=== PATIENT | male | born 2000 | race African-American/Black ===

== ENCOUNTER 2023-10-01 06:09 | Emergency (ER) | payer SELFPAY ==
--- NOTE | ~2023-10-01 | XR_ITS ---
Supine and upright views of the abdomen Clinical history: Constipation, rectal bleeding Findings: Bowel gas pattern is nonspecific. Mild to moderate stool burden present. No evidence for ob struction or free air. No abnormal mass lesion or calcification is seen. Osseous structures are intac t. Impression: Mild to moderate stool burden. Nonspecific bowel gas pattern. Reviewed, dictated and finalized at [facility]. Impression: Mild to moderate stool burden. Nonspecific bowel gas pattern.
--- NOTE | ~2023-10-01 | XR_ITS ---
Clinical Indication: Chest pain PA and lateral views of the chest: Comparison: 04/09/2015 Findings: The lungs are clear, without evidence of focal consolidation or pleural effusion. Cardiome diastinal silhouette is within normal limits. Bones and soft tissues are unremarkable. Impression: Normal chest. Reviewed, dictated and finalized at location . Impression: Normal chest.
[2023-10-01 06:19] VITALS: BP 150/87; PULSE 77; RESP 20; TEMP 36.1; O2SAT 97
[2023-10-01 06:27] VITALS: PULSE 76
[2023-10-01 06:28] VITALS: O2SAT 98
[2023-10-01 06:29] VITALS: BP 150/87; PULSE 66; RESP 19; TEMP 36.1; O2SAT 98
--- NOTE | 2023-10-01 06:30 | ECG_ITS ---
SEE SCANNED COPY FOR CONFIRMED REPORT. MTDD
[2023-10-01] MEDS: ASPIRIN 81 MG CHEWABLE TABLET 324 MG PO (06:42)
[2023-10-01 06:44] LABS: Basophils Absolute Auto 0.1 K/mm3 (0.0-0.1); Basophils Percent Auto 0.8 % (0.2-1.2); Eosinophils Absolute Auto 0.1 K/mm3 (0-0.3); Eosinophils Percent Auto 1.3 % (0-4.4); Hematocrit 44.3 % (42.0-52.0); Hemoglobin 15.2 g/dL (14.0-18.0); Immature Granulocyte Absolute 0.03 K/mm3 (0.00-0.031); Immature Granulocyte Percent A 0.3 % (0-0.5); Lymphocytes Absolute Auto 2.72 K/mm3 (0.9-3.2); Lymphocytes Percent Auto 29.2 % (18.3-44.2); Mean Corpuscular HGB Conc 34.3 g/dl (32-36); Mean Corpuscular Volume 81.6 fl (80-100); Mean Platelet Volume 10.3 fl (7.4-10.4); Monocytes Absolute Auto 0.5 K/mm3 (0.1-0.6); Monocytes Percent Auto 5.8 % (2.6-8.5); Neutrophils Absolute Auto 5.8 K/mm3 (1.3-6.7); Neutrophils Percent Auto 62.6 % (45.5-73.1); Platelet Count Result 254 k/mm3 (150-375); Red Blood Count 5.43 M/mm3 (4.6-6.20); Red Cell Distribution Width 13.6 % (11.5-14.5); White Blood Count 9.3 K/mm3 (4.5-10.0)
[2023-10-01 06:54] LABS: Alanine Aminotransferase 23 U/L (6-50); Albumin Level 4.6 g/dL (3.5-5.1); Alkaline Phosphatase 82 U/L (38-126); Anion Gap 6 mmol/L (4-12); Aspartate Amino Transferase 32 U/L (17-59); Bilirubin,Total 0.6 mg/dL (0.2-1.3); Blood Urea Nitrogen 14 mg/dL (9-20); Calcium 9.2 mg/dL (8.4-10.2); Carbon Dioxide 24 mmol/L (22-30); Chloride 106 mmol/L (98-107); Estimated Glomerular Filt Rate > 60; Glucose 109 mg/dL (65-110); Lipase 236 U/L (23-300); Potassium 4.2 mmol/L (3.4-5.0); Sodium 136 mmol/L (137-145)
[2023-10-01 06:56] LABS: Partial Thromboplastin Time 35.8 Seconds (22.3-36.8)
--- NOTE | 2023-10-01 06:58 | ED.CHESTPAIN ---
HPI - Chest Pain General Chief Complaint: Chest Pain Stated Complaint: chest pain, constipation Time Seen by Provider: 10/01/23 06:56 Source: patient and family (Mother) Mode of arrival: ambulatory Limitations: no limitations History of Present Illness HPI narrative: 23-year-old male presents with episodic intermittent chest pain. This has been going on since yesterday. No radiation. Symptoms occur intermittently and last for approximately 10-15 minutes. Patient denies being short of breath but does have pain that is exacerbated by inspiration. No cough or fevers. This has never occurred before. No underlying cardiac conditions and does follow with a bar turner. No lower extremity edema. History of asthma for which he uses his albuterol inhaler p.r.n.. He has also been having constipation. Usually he defecates frequently, sometimes multiple times a day. Approximately 1 week ago he started becoming constipated. Three days ago he tried magnesium citrate and this did produce a bowel movement but then became constipated again and hasn't had a bowel movement. With this, he is intermittently nauseated but denies any vomiting. He has had decreased p.o. intake. This has never happened before. He denies any abdominal pain. He is not on any opiates or heroin. He has developed a hemorrhoid and is having some low back pain. In addition he is having myalgias. Experiences pain is rectum only when he defecates. He has noticed some blood on the tissue paper. No prior diagnosis HLD. Has been diagnosed with HTN but not on meds. Non smoker of cigarettes. No fam member with heart attack before age 65. Related Data Allergies Allergy/AdvReac Type Severity Reaction Status Date / Time No Known Allergies Allergy Mild Verified 10/01/23 06:26 [facility] Past Medical History Medical History (Updated 10/01/23 @ 08:13 by Melinda Mehta MD) Asthma HTN (hypertension) not on antihypertensive Social History Social History (Updated 10/01/23 @ 08:14 by Melinda Mehta MD) Social History: Good social support Smoking packs per day: 0 Smoking cigarettes per day: 0.0 Smoking status: Never smoker Substance use type: marijuana Other substance usage details: dabs Exam Narrative: GENERAL: Well-appearing, well-nourished, and in no acute distress. HEAD: Normocephalic, atraumatic. EYES: Non injected, non icteric ENT: Nares clear, no rhinorrhea or epistaxis. NECK: Supple. CHEST: Speaking in full sentences. No respiratory distress. Lungs clear to auscultation bilaterally w/o appreciable, stridor, crackles, wheeze. HEART: Regular rate and rhythm. . ABDOMEN/GI: Obese, protuberant. Soft, nondistended. No tenderness to palpation. No rigidity or guarding. Rectal exam performed. There is evidence of a non thrombosed external hemorrhoid. No gross blood. Normal sphincter tone. No masses, anal fissure. FOBT negative. EXTREMITIES: Normal range of motion. No edema. SKIN: Warm, dry, no rash. NEURO: No focal deficits. Alert and oriented x3. PSYCH: Normal mood and affect. Course Vital Signs Vital signs: Vital Signs Temperature 97.0 F L 10/01/23 06:19 Pulse Rate 77 10/01/23 06:19 Respiratory Rate 20 10/01/23 06:19 Blood Pressure 150/87 H 10/01/23 06:19 Pulse Oximetry 97 10/01/23 06:19 Oxygen Delivery Room Air 10/01/23 06:19 Temperature 97.0 F L 10/01/23 06:29 Pulse Rate 62 10/01/23 08:31 Respiratory Rate 16 10/01/23 08:31 Blood Pressure 132/97 H 10/01/23 08:31 Pulse Oximetry 99 10/01/23 08:31 Oxygen Delivery Room Air 10/01/23 06:28 MDM - Chest Pain MDM Narrative Medical decision making narrative: The patient is a 23 year old who comes to the emergency department with intermittent episodic chest pain exacerbated by inspiration as well as myalgias and constipation. Has noted some rectal bleeding and has a hemorrhoid. In the emergency department he is afebrile with vital signs
[2023-10-01 07:05] LABS: Troponin I < 0.012 ng/mL (0.000-0.034)
[2023-10-01] MEDS: ACETAMINOPHEN 500 MG TABLET 1000 MG PO (07:17)
[2023-10-01] MEDS: ONDANSETRON INJ 4 MG/2 ML VIAL IV PUSH (07:18)
--- NOTE | 2023-10-01 07:20 | PC.NURSE ---
pt taken to xray at this time
[2023-10-01 07:28] LABS: Magnesium 2.1 mg/dL (1.6-2.3)
--- NOTE | 2023-10-01 07:29 | PC.NURSE ---
Pt returned to room 7 at this time
[2023-10-01 07:35] VITALS: BP 132/84; PULSE 80; RESP 16; O2SAT 97
[2023-10-01 07:59] LABS: D Dimer 0.31 ug/mL (<0.48)
[2023-10-01 08:02] LABS: Influenza A QL RT-PCR Negative (Negative); Influenza B QL RT-PCR Negative (Negative); SARS-CoV-2 RNA PCR Negative (Negative)
[2023-10-01 08:31] VITALS: BP 132/97; PULSE 62; RESP 16; O2SAT 99
== END 2023-10-01 08:32 | disposition home or self-care (01) ==
PROVIDERS: Emergency Medicine; Emergency Provider Student in an Organized Health Care Education/Training Program
DX: R07.9 Chest pain, unspecified (principal); K64.4 Residual hemorrhoidal skin tags; K59.00 Constipation, unspecified; Z20.822 Contact with and (suspected) exposure to COVID-19; J45.909 Unspecified asthma, uncomplicated; I10 Essential (primary) hypertension
CPT/HCPCS: 36415; 71046; 74019; 80053; 83690; 83735; 84484; 85025; 85380; 85610; 85730; 87636; 93005; 96374; 99284; A9270; J2405